=== PATIENT | male | born 1945 | race Caucasian/White ===

== ENCOUNTER 2021-11-11 19:25 | Emergency (ER) | payer MEDICARE ==
[2021-11-11] MEDS ORDERED: Albuterol/Ipratropium 3.0-0.5 MG/3 ML Neb Soln NEB STA (19:39)
[2021-11-11] MEDS ORDERED: methylPREDNISolone Sodium Succinate 125 MG/2 ML SDV IM STA (19:40)
[2021-11-11] MEDS ORDERED: Amoxicillin/Clavulanate K 875-125 MG Tab PO STA (20:36)
[2021-11-11] MEDS ORDERED: Amoxicillin/Clavulanate K 875-125 MG Tab PO ONE (20:47)
== END 2021-11-11 20:55 | disposition home or self-care (01) ==
LOC: FB.ED 19:25
DX: J44.1 Chronic obstructive pulmonary disease with (acute) exacerbation (principal); K21.9 Gastro-esophageal reflux disease without esophagitis; N40.0 Benign prostatic hyperplasia without lower urinary tract symptoms; E11.9 Type 2 diabetes mellitus without complications; Z79.4 Long term (current) use of insulin; Z79.899 Other long term (current) drug therapy; Z87.891 Personal history of nicotine dependence
CPT/HCPCS: 36415; 71045; 80053; 83880; 84484; 85025; 93005; 93010; 96372; 99282; 99285-25; A9270-GY; J2930; J7620

== ENCOUNTER 2021-11-13 15:38 | Inpatient (IN) | payer MEDICARE ==
[~2021-11-13 15:38] MED LIST: Insulin Lispro 100 Unit/ML 3 ML KwikPen SUBCUT ONE
[2021-11-13] MEDS ORDERED: Albuterol 8 GM Inhaler INH PRN (17:30)
[2021-11-13] MEDS ORDERED: cefTRIAXone 2 GM in Sodium Chloride 0.9% 100 ML IV ONE (17:44)
[2021-11-13] MEDS ORDERED: Piperacillin/Tazobactam 3.375 GM in Sodium Chloride 0.9% 50 ML IV SCH (17:45)
[2021-11-13] MEDS ORDERED: 50% Dextrose in Water 50 ML Syringe IVPUSH PRN (17:47)
[2021-11-13] MEDS ORDERED: Glucagon,Human Recombinant 1 MG Vial IM PRN (17:47)
[2021-11-13] MEDS ORDERED: Insulin Lispro Protamine/Lispro 75-25 100 Units/ML 3 ML KwikPen SUBCUT SCH (18:00)
[2021-11-13] MEDS: Sodium Chloride 0.9% 10 ML Syringe FLUSH PRN (18:36)
[2021-11-13] MEDS: Azithromycin 500 MG in Sodium Chloride 0.9% 250 ML IV SCH (18:41)
[2021-11-13] MEDS ORDERED: Insulin Lispro Protamine/Lispro 75-25 100 Units/ML 3 ML KwikPen SUBCUT ONE (18:49)
[2021-11-13] MEDS: Insulin Lispro 100 Unit/ML 3 ML KwikPen SUBCUT SCH (19:00)
[2021-11-13] MEDS: Enoxaparin 40 MG/0.4 ML Syringe SUBCUT SCH (20:46)
[2021-11-13] MEDS: Montelukast 10 MG Tab PO SCH (20:46)
[2021-11-13] MEDS: Simvastatin 40 MG Tab PO SCH (20:46)
[2021-11-13] MEDS ORDERED: Formoterol/Mometasone 200-5 MCG 8.8 GM Inhaler IH SCH (21:00)
[2021-11-14] MEDS: Pantoprazole 40 MG Tab.CR PO SCH (06:34)
[2021-11-14] MEDS: Albuterol 0.083% 2.5 MG/3 ML Neb Soln INH PRN ×2 (06:36→20:57)
[2021-11-14] MEDS: Sodium Chloride 0.9% 10 ML Syringe FLUSH PRN ×2 (06:37→18:02)
[2021-11-14] MEDS ORDERED: Pantoprazole 40 MG Tab.CR PO SCH (07:30)
[2021-11-14] MEDS: Insulin Lispro 100 Unit/ML 3 ML KwikPen SUBCUT SCH ×3 (08:25→17:49)
[2021-11-14] MEDS: Insulin Lispro Protamine/Lispro 75-25 100 Units/ML 3 ML KwikPen SUBCUT SCH ×2 (08:26→17:49)
[2021-11-14] MEDS: Formoterol/Mometasone 200-5 MCG 8.8 GM Inhaler IH SCH ×2 (08:27→20:46)
[2021-11-14] MEDS: Aspirin 81 MG Tab.EC PO SCH (08:28)
[2021-11-14] MEDS: Finasteride 5 MG Tab PO SCH (08:28)
[2021-11-14] MEDS: Tamsulosin 0.4 MG Cap.ER PO SCH (08:28)
[2021-11-14] MEDS: Multivitamins with Iron/Calcium/Folic Acid/Minerals Tab PO SCH (08:29)
[2021-11-14] MEDS: Tiotropium Bromide 4 GM Inhalation Spray (2.5mcg/1 dose; 10 doses) INH SCH (08:29)
[2021-11-14] MEDS: FLUoxetine 20 MG Cap PO SCH (08:29)
[2021-11-14] MEDS ORDERED: Furosemide 40 MG Tab PO ONE (09:30)
[2021-11-14] MEDS: Azithromycin 500 MG in Sodium Chloride 0.9% 250 ML IV SCH (17:58)
[2021-11-14] MEDS ORDERED: cefTRIAXone 1 GM Vial IVPUSH SCH (18:00)
[2021-11-14] MEDS: Enoxaparin 40 MG/0.4 ML Syringe SUBCUT SCH (20:47)
[2021-11-14] MEDS: Simvastatin 40 MG Tab PO SCH (20:48)
[2021-11-14] MEDS: Montelukast 10 MG Tab PO SCH (20:48)
[2021-11-15] MEDS: Pantoprazole 40 MG Tab.CR PO SCH (05:49)
[2021-11-15] MEDS: Tiotropium Bromide 4 GM Inhalation Spray (2.5mcg/1 dose; 10 doses) INH SCH (08:35)
[2021-11-15] MEDS: Formoterol/Mometasone 200-5 MCG 8.8 GM Inhaler IH SCH ×2 (08:35→20:34)
[2021-11-15] MEDS: Tamsulosin 0.4 MG Cap.ER PO SCH (08:36)
[2021-11-15] MEDS: Aspirin 81 MG Tab.EC PO SCH (08:36)
[2021-11-15] MEDS: Multivitamins with Iron/Calcium/Folic Acid/Minerals Tab PO SCH (08:36)
[2021-11-15] MEDS: FLUoxetine 20 MG Cap PO SCH (08:36)
[2021-11-15] MEDS: Finasteride 5 MG Tab PO SCH (08:36)
[2021-11-15] MEDS: Insulin Lispro Protamine/Lispro 75-25 100 Units/ML 3 ML KwikPen SUBCUT SCH ×2 (08:37→17:40)
[2021-11-15] MEDS: Insulin Lispro 100 Unit/ML 3 ML KwikPen SUBCUT SCH ×3 (08:38→17:39)
[2021-11-15] MEDS ORDERED: Amoxicillin/Clavulanate K 875-125 MG Tab PO SCH (09:00)
[2021-11-15] MEDS ORDERED: Azithromycin 500 MG Tab PO ONE ×2 (09:04→11:15)
[2021-11-15] MEDS ORDERED: Azithromycin 500 MG Tab ONE (11:12)
[2021-11-15] MEDS: Amoxicillin/Clavulanate K 875-125 MG Tab PO SCH ×2 (11:17→20:49)
[2021-11-15] MEDS: Montelukast 10 MG Tab PO SCH (20:34)
[2021-11-15] MEDS: Enoxaparin 40 MG/0.4 ML Syringe SUBCUT SCH (20:34)
[2021-11-15] MEDS: Simvastatin 40 MG Tab PO SCH (20:34)
[2021-11-16] MEDS: Insulin Lispro Protamine/Lispro 75-25 100 Units/ML 3 ML KwikPen SUBCUT SCH (08:04)
[2021-11-16] MEDS: Insulin Lispro 100 Unit/ML 3 ML KwikPen SUBCUT SCH (08:05)
[2021-11-16] MEDS: Formoterol/Mometasone 200-5 MCG 8.8 GM Inhaler IH SCH (08:06)
[2021-11-16] MEDS: Tamsulosin 0.4 MG Cap.ER PO SCH (08:06)
[2021-11-16] MEDS: Tiotropium Bromide 4 GM Inhalation Spray (2.5mcg/1 dose; 10 doses) INH SCH (08:06)
[2021-11-16] MEDS: Pantoprazole 40 MG Tab.CR PO SCH (08:06)
[2021-11-16] MEDS: FLUoxetine 20 MG Cap PO SCH (08:06)
[2021-11-16] MEDS: Finasteride 5 MG Tab PO SCH (08:06)
[2021-11-16] MEDS: Amoxicillin/Clavulanate K 875-125 MG Tab PO SCH (08:07)
[2021-11-16] MEDS: Multivitamins with Iron/Calcium/Folic Acid/Minerals Tab PO SCH (08:07)
[2021-11-16] MEDS: Aspirin 81 MG Tab.EC PO SCH (08:07)
[2021-11-16] MEDS ORDERED: Furosemide 20 MG Tab PO ONE (09:28)
== END 2021-11-16 10:30 | disposition home or self-care (01) | DRG 871 ==
LOC: FB.MS 16:38
PROVIDERS: ADMIT Student in an Organized Health Care Education/Training Program; ATTEND Student in an Organized Health Care Education/Training Program
DX: A41.9 Sepsis, unspecified organism (principal); J18.9 Pneumonia, unspecified organism; J44.1 Chronic obstructive pulmonary disease with (acute) exacerbation; J44.0 Chronic obstructive pulmonary disease with (acute) lower respiratory infection; I35.0 Nonrheumatic aortic (valve) stenosis; E66.01 Morbid (severe) obesity due to excess calories; E11.9 Type 2 diabetes mellitus without complications; E78.5 Hyperlipidemia, unspecified; F32.A Depression, unspecified; I11.0 Hypertensive heart disease with heart failure; I50.9 Heart failure, unspecified; Z79.899 Other long term (current) drug therapy; Z79.82 Long term (current) use of aspirin; Z79.84 Long term (current) use of oral hypoglycemic drugs; H91.93 Unspecified hearing loss, bilateral; E78.00 Pure hypercholesterolemia, unspecified; G47.30 Sleep apnea, unspecified; K21.9 Gastro-esophageal reflux disease without esophagitis; N40.0 Benign prostatic hyperplasia without lower urinary tract symptoms; F41.9 Anxiety disorder, unspecified; G47.00 Insomnia, unspecified; Z68.34 Body mass index [BMI] 34.0-34.9, adult
CPT/HCPCS: 36415; 80048; 80053; 82947; 83880; 85025; 88104; 94640; A9270-GY; C8929; J0456; J0696; J1650; J1815; J1815-GY; J3490; J7050